=== PATIENT | female | born 1965 | race Caucasian/White ===

== ENCOUNTER 2020-12-26 08:20 | Day surgery (SDC) | payer OTHER ==
[2020-12-20 15:33] LABS: BASOPHIL % 1.6 % (0.2-1.3); PLATELET COUNT 188 x10^3mcL (179-408); RED CELL DISTRIBUTION WIDTH 13.5 % (12.3-17.7)
[2020-12-20 15:53] LABS: ALBUMIN 3.9 g/dL (3.4-5.0); ALKALINE PHOSPHATASE 72 U/L (46-116); ALT/SGPT 38 U/L (14-59); AST/SGOT 21 U/L (15-37); BILIRUBIN TOTAL 0.5 mg/dL (0.20-1.00); CALCIUM 8.7 mg/dL (8.5-10.1); CARBON DIOXIDE 28.6 mmol/L (21-32); CHLORIDE SERUM 108 mmol/L (98-107); CREATININE SERUM 0.8 mg/dL (0.6-1.0); GFR1 > 60 mL/min; GLUCOSE SERUM 82 mg/dL (74-106); POTASSIUM SERUM 4.3 mmol/L (3.5-5.1); SODIUM SERUM 146 mmol/L (136-145); TOTAL PROTEIN, SERUM 7.4 g/dL (6.4-8.2)
--- NOTE | 2020-12-23 09:59 | NUR ---
CBC,CMP RESULT GIVEN TO ANESTHESIA TO REVIEW.
--- NOTE | 2020-12-23 16:55 | NUR ---
ANESTHESIA REVIEWED CBC AND CMP RESULT AND PER DR ELIZABETH OK FOR PATIENT TO PROCEED WITH SURGERY.
[~2020-12-26] VITALS: Ht 167.6 cm; Wt 80.7 kg
[2020-12-26 08:46] VITALS: BP 132/92
[2020-12-26 16:19] VITALS: BP 124/61
== END 2020-12-26 16:00 | disposition home or self-care (01) ==
LOC: DS 08:20 → OR 10:30 → DS 10:30
PROVIDERS: ATTEND Surgery
DX: K42.9 Umbilical hernia without obstruction or gangrene (principal); K40.90 Unilateral inguinal hernia, without obstruction or gangrene, not specified as recurrent; E66.3 Overweight; Z68.28 Body mass index [BMI] 28.0-28.9, adult; Z20.822 Contact with and (suspected) exposure to COVID-19
CPT/HCPCS: C1781; J0131; J0690; J1170; J3010; J3490; U0003